=== PATIENT | female | born 1980 | race Caucasian/White ===

== ENCOUNTER 2016-12-11 20:52 | Emergency (ER) | payer MEDICAID ==
[~2016-12-11] VITALS: Ht 147.3 cm; Wt 59.1 kg
[2016-12-11] MEDS ORDERED: PERCT10 PO (21:29)
[2016-12-11] MEDS ORDERED: ALPR0.5T8 PO (21:29)
[2016-12-11 21:32] LABS: BASOPHILS % (AUTO) 0.5 % (0.0-2.0); EOSINOPHILS % (AUTO) 0.6 % (1.0-6.0); HEMATOCRIT 39.7 % (36-46); HEMOGLOBIN 12.8 g/dL (12.0-16.0); LYMPHOCYTES # (AUTO) 3.4 K/uL (1.0-4.8); LYMPHOCYTES % (AUTO) 30.1 % (22.0-44.0); MEAN CORPUSCULAR HEMOGLOBIN 27.6 pg (26.0-34.0); MEAN CORPUSCULAR HGB CONC 32.3 G/dL (31.0-37.0); MEAN CORPUSCULAR VOLUME 86 fL (80-100); MONOCYTES # (AUTO) 0.8 K/uL (0.1-1.0); MONOCYTES % (AUTO) 7.2 % (2.0-9.0); NEUTROPHILS # (AUTO) 6.9 K/uL (1.8-7.7); NEUTROPHILS % (AUTO) 61.6 % (40.0-70.0); PLATELET COUNT (AUTO) 394 K/uL (150-450); RED BLOOD CELL COUNT(AUTO) 4.64 MIL/uL (4.00-5.20); WHITE BLOOD COUNT (AUTO) 11.3 K/uL (4.5-11.0)
[2016-12-11 21:36] LABS: ANION GAP 11 mmol/L (8-16); CALCIUM, TOTAL 9.3 mg/dL (8.8-10.5); CARBON DIOXIDE 27 mmol/L (22-29); CHLORIDE 103 mmol/L (98-107); CREATININE 0.82 mg/dL (0.60-1.30); GLOMERULAR FILTR. RATE CALC > 60 mL/min (>60); POTASSIUM 3.6 mmol/L (3.5-5.1); SODIUM SERUM 141 mmol/L (136-145); UREA NITROGEN, BLOOD 7 mg/dL (7-18)
[2016-12-11 21:42] LABS: ALANINE AMINOTRANSFERASE 19 U/L (12-78); ALBUMIN 4.5 g/dL (3.4-5.0); ASPARTATE AMINOTRANSFERASE 21 U/L (15-37); BILIRUBIN,TOTAL 0.4 mg/dL (0.1-1.0); TOTAL PROTEIN, SERUM 8.1 g/dL (6.4-8.2)
[2016-12-12] MEDS ORDERED: ALPRAZolam 0.25 MG TABLET PO ONE (00:15)
[2016-12-12] MEDS ORDERED: ALPRAZolam 1 MG TABLET PO ONE (00:15)
[2016-12-12 00:16] VITALS: BP 126/73
[2017-01-28] MEDS ORDERED: TRAM50TA4 PO (00:20)
== END 2016-12-12 00:20 | disposition home or self-care (01) ==
LOC: EMS 21:00
DX: F15.10 Other stimulant abuse, uncomplicated (principal); F17.210 Nicotine dependence, cigarettes, uncomplicated
CPT/HCPCS: 36415; 80053; 80307; 84703; 85025; 99284; G0480

== ENCOUNTER 2016-12-12 02:20 | Emergency (ER) | payer MEDICAID ==
[~2016-12-12] VITALS: Ht 147.3 cm; Wt 59.1 kg
[~2016-12-12 02:20] MED LIST: ALPR0.5T8 PO; PERCT10 PO
[2016-12-12 02:21] VITALS: BP 122/70
[2017-01-28] MEDS ORDERED: TRAM50TA4 PO (00:20)
== END 2016-12-12 03:35 | disposition home or self-care (01) ==
LOC: EMS 02:22
DX: F20.9 Schizophrenia, unspecified (principal); K08.89 Other specified disorders of teeth and supporting structures; F15.90 Other stimulant use, unspecified, uncomplicated; F17.210 Nicotine dependence, cigarettes, uncomplicated
CPT/HCPCS: 99283; 99284